=== PATIENT | female | born 1960 ===

== ENCOUNTER 2025-01-03 08:16 | Inpatient (IN) | payer OTHER ==
[~2025-01-03] VITALS: Ht 162.6 cm; Wt 77.1 kg
[2025-01-03 08:59] VITALS: BP 145/80
[2025-01-03] MEDS ORDERED: PEPCID AC20 MG PO (08:59)
[2025-01-03 09:09] VITALS: BP 125/78
[2025-01-03 09:42] LABS: BASO % 0.9 % (0.1-1.2); EOS # 0.10 (0.04-0.54); EOS % 2.4 % (0.7-7.0); LYMPH # 1.23 (1.18-3.74); LYMPH % 29.1 % (19.3-53.1); MEAN PLATELET VOLUME 8.90 fl (9.4-12.4); MONO # 0.30 (0.24-0.82); MONO % 7.1 % (4.7-12.5); NEUT # 2.54 (1.56-6.13); NEUT % 60.3 % (34.0-71.1); RED CELL DISTRIBUTION WIDTH 12.6 % (11.6-14.4)
[2025-01-03 09:47] LABS: URINE APPEARANCE Clear; URINE BILIRRUBIN Negative (NEGATIVE); URINE BLOOD Negative; URINE COLOR Yellow; URINE GLUCOSE Negative (NEGATIVE); URINE KETONE Negative (NEGATIVE); URINE LEUKOCYTE Negative; URINE NITRATE Negative; URINE PROTEIN Negative (NEGATIVE); URINE UROBILINOGEN 0.2 E.U./dl
[2025-01-03 09:49] LABS: URINE RBC 3.8 uL (0.0-20.8)
[2025-01-03 10:10] LABS: URINE BACTERIA 1.1 uL (0.0-1933); URINE CAST 0.00 uL (0.0-1.40); URINE EPITHELIAL CELLS 0.6 uL (0.0-38.8); URINE WBC 0.9 uL (0.0-23.2)
[2025-01-03 10:11] LABS: INR 0.97
[2025-01-03 10:35] LABS: ALT/SGPT 37.0 U/L (12-78); AST/SGOT 15.0 U/L (15-37); BILIRUBIN TOTAL 1.7 mg/dL (0.3-1.2); BUN CREA RATIO 22.0 (7.0-25.0); CREATININE SERUM 0.72 mg/dL (0.55-1.02); GFR 82.08; GLOBULINA 3.1 G/DL (2.4-3.5); GLUCOSE FASTING 90.0 mg/dL (65-100); OSMOLALITY SERUM 288.0 MOSM/KG (275-295)
[2025-01-09] MEDS ORDERED: DEXAMETHASONE SODIUM PHOSPHATE 4 MG/ML VIAL ONE ×2 (06:11→07:26)
[2025-01-09] MEDS ORDERED: ENALAPRILAT DIHYDRATE 1.25 MG/ML VIAL IV PRN (10:30)
[2025-01-09] MEDS ORDERED: ONDANSETRON HCL 2 MG/ML VIAL IV PRN (10:30)
[2025-01-09] MEDS ORDERED: TRAMADOL HCL 50 MG TABLET PO SCH (17:00)
[2025-01-09] MEDS ORDERED: ACETAMINOPHEN 500 MG GEL..CAP PO SCH (17:00)
[2025-01-09] MEDS ORDERED: CYCLOBENZAPRINE HCL 5 MG TABLET PO SCH (17:00)
[2025-01-09] MEDS ORDERED: DIPHENHYDRAMINE HCL 75 MG,LIDOCAINE HCL 30 ML,MAG HYDROX/ALUMINUM HYD/SIMETH 30 ML PO SCH (17:00)
[2025-01-09 18:08] VITALS: BP 129/78; O2SAT 94
[2025-01-09] MEDS ORDERED: PANTOPRAZOLE SODIUM 40 MG/VIAL VIAL IV PUSH SCH (21:00)
[2025-01-09] MEDS ORDERED: Calcium Carbonate 1 TAB TABLET PO SCH (21:00)
[2025-01-10 02:44] VITALS: BP 100/55; O2SAT 98
[2025-01-10] MEDS ORDERED: MAG HYDROX/ALUMINUM HYD/SIMETH 30 ML BLIST.PACK PO ONE (07:13)
[2025-01-10 08:10] VITALS: BP 124/79; O2SAT 96
[2025-01-11] MEDS ORDERED: LEVOTHYROXINE SODIUM 112 MCG TABLET PO SCH (06:00)
== END 2025-01-10 13:56 | disposition home or self-care (01) | DRG 627 ==
LOC: O/R 01-09 06:00 → SURH 01-09 08:30 → SURG 01-09 11:15
PROVIDERS: ADMIT Surgery; ATTEND Surgery
PROC: 0GTK0ZZ Resection of Thyroid Gland, Open Approach (ICD-10-PCS; principal; 2025-01-09 08:45)
DX: D34 Benign neoplasm of thyroid gland (principal); C73 Malignant neoplasm of thyroid gland; E04.2 Nontoxic multinodular goiter; E06.3 Autoimmune thyroiditis